=== PATIENT | female | born 1975 | race Caucasian/White ===

== ENCOUNTER 2016-08-10 19:41 | Emergency (ER) | payer BC, OTHER ==
[2016-08-10] MEDS ORDERED: solu-MEDROL 125 MG IV ONE (19:52)
[2016-08-10] MEDS ORDERED: PROVENTIL 2.5 MG/3 ML NEB IH ONE ×2 (19:52→19:59)
[2016-08-10] MEDS ORDERED: solu-MEDROL 125 MG ONE (19:56)
[2016-08-10] MEDS ORDERED: Sodium Chloride 0.9% 1000 ML 1,000 ML ONE (19:56)
--- NOTE | 2016-08-10 19:57 | ERPHSYRPT ---
- History of Present Illness Time Seen by Provider: 08/10/16 19:54 Source: patient Exam Limitations: no limitations Patient Subjective Stated Complaint: PT REPORTS INCREASED SOB BEGINNING YESTERDAY-DENIES PRODUCTIVE COUGH-DENIES FEVER Triage Nursing Assessment: PT WHEEZING UPON ARRIVAL-LUNGS TIGHT WITH WHEEZES THROUGHOUT-LABORED BREATHING NOTED-PT ABLE TO SPEAK IN COMPLETE SENTECES WITH EFFORT Physician History: 41-year-old female with significant past medical history of pulmonary fibrosis came to the emergency room with worsening shortness of breath for 1 day. She took some breathing treatments and oxygen at home but without any help. She denies any fever, chills, but complaining of productive cough. Timing/Duration: today Severity of Dyspnea-Max: moderate Severity of Dyspnea-Current: moderate Possible Cause: frequent episodes Modifying Factors: Improves With: nothing Associated Symptoms: cough, wheezing, No chest pain/discomfort, No fever Allergies/Adverse Reactions: No Known Drug Allergies Allergy (Verified 08/10/16 19:47) Home Medications: Clonazepam 0.5 mg [Klonopin 0.5 MG] 0.5 mg PO BID 08/10/16 [History] Hydrocodone Bit/Acetaminophen [[place] 5-325 Tablet] 1 each PO UD 08/10/16 [ History] Tiotropium [place] Inhaler [Spiriva 18 Mcg/Cap Inhaler] 1 ea IH UD [History] Hx Tetanus, Diphtheria Vaccination/Date Given: Yes (5 yrs) Hx Influenza Vaccination/Date Given: No Hx Pneumococcal Vaccination/Date Given: Yes (5 yrs) Immunizations Up to Date: Yes - Review of Systems Constitutional: No Fever, No Chills Eyes: No Symptoms Ears, Nose, & Throat: No Symptoms Respiratory: Cough, Dyspnea, Dyspnea on Exertion (READ), Wheezing Cardiac: No Chest Pain, No Edema, No Syncope Abdominal/Gastrointestinal: No Abdominal Pain, No Nausea, No Vomiting, No Diarrhea Genitourinary Symptoms: No Dysuria Musculoskeletal: No Back Pain, No Neck Pain Skin: No Rash Neurological: No Dizziness, No Focal Weakness, No Sensory Changes Psychological: No Symptoms Endocrine: No Symptoms All Other Systems: Reviewed and Negative - Past Medical History Pertinent Past Medical History: Yes Respiratory History: Asthma, COPD, Pneumonia Psycho-Social History: Depression Other Medical History: PULMONARY - Past Surgical History Past Surgical History: Yes Musculoskeletal: Orthopedic Surgery Female Surgical History: Hysterectomy - Social History Smoking Status: Former smoker How long have you smoked: 20 Exposure to second hand smoke: Yes Drug Use: none Patient Lives Alone: No - Female History Hx Now: No - Nursing Vital Signs Nursing Vital Signs: Initial Vital Signs Temperature 99.1 F Temperature Source Oral Pulse Rate 103 Respiratory Rate 22 Blood Pressure [] 119/69 Pain Intensity 6 - Physical Exam General Appearance: no apparent distress, alert Eye Exam: PERRL/EOMI Neck Exam: normal inspection, supple Respiratory Exam: respiratory distress, diminished breath sounds, prolonged expirations, rhonchi, wheezing Cardiovascular/Chest Exam: normal heart sounds, regular rate/rhythm Abdominal/Gastrointestinal Exam: soft, No tenderness, No distention, No mass Extremity Exam: non-tender, normal range of motion, normal inspection, no calf tenderness, no pedal edema Neurologic Exam: alert, oriented x 3, cooperative, science analyst II-XII nml as tested, sensation nml, No motor deficits Skin Exam: normal color, warm, No dry SpO2 Interpretation: borderline oxygenation SpO2: 94 Oxygen Delivery: Room Air - Course Nursing assessment & vital signs reviewed: Yes - Radiology Exams Chest X-ray Interpretation: Reviewed by me, Teleradiologist Report Ordered Tests: Active Orders 24 hr Category Date Time Status Oxygen-ED Only NASAL CANNULA 3 lpm Care 08/10/16 19:52 Active CHEST 2 VIEWS (PA AND LAT) Stat Exams 08/10/16 19:52 Taken CBC W DIFF Stat Lab 08/10/16 19:55 Completed CMP Stat Lab 08/10/16 19:55 Completed Respiratory Nebulizer STAT RT 08/10/16 19:54 Completed Respiratory Nebulizer STAT RT 08/10/16 20:41 Completed Medication Summary Generic Name Dose Route Start Last Admin Trade Name Freq PRN Reason Stop Dose Admin Sodium Chloride 1,000 mls @ 50 mls/hr 08/10/16 20:00 08/10/16 20:00 Sodium Chloride 0.9% 1000 Ml IV 09/09/16 19:59 50 mls/hr .Q20H SYED Administration Discontinued Medications Generic Name Dose Route Start Last Admin Trade Name Freq PRN Reason Stop Dose Admin Albuterol Sulfate 2.5 mg 08/10/16 19:52 08/10/16 20:17 Proventil 2.5 Mg/3 Ml Neb IH 08/10/16 19:53 2.5 mg STAT ONE Administration Albuterol Sulfate Confirm 08/10/16 19:59 Proventil 2.5 Mg/3 Ml Neb Administered 08/10/16 20:00 Dose 2.5 mg IH .STK-MED ONE Albuterol/Ipratropium 3 ml 08/10/16 20:41 08/10/16 20:56 Duoneb 0.5-3 Mg/3 Ml Neb IH 08/10/16 20:42 3 ml STAT ONE Administration Albuterol/Ipratropium Confirm 08/10/16 20:55 Duoneb 0.5-3 Mg/3 Ml Neb Administered 08/10/16 20:56 Dose 3 ml IH .STK-MED ONE Budesonide 0.5 mg 08/10/16 20:00 08/10/16 20:17 Pulmicort 0.5 Mg/2 Ml Respules IH 08/10/16 20:01 0.5 mg STAT ONE Administration Budesonide Confirm 08/10/16 19:59 Pulmicort 0.5 Mg/2 Ml Respules Administered 08/10/16 20:00 Dose 0.5 mg IH .STK-MED ONE Methylprednisolone Sodium Succinate 80 mg 08/10/16 19:52 08/10/16 20:00 Solu-Medrol 125 Mg IV 08/10/16 19:53 80 mg STAT ONE Administration Methylprednisolone Sodium Succinate Confirm 08/10/16 19:56 Solu-Medrol 125 Mg Administered 08/10/16 19:57 Dose 125 mg .ROUTE .STK-MED ONE Lab/Rad Data: Laboratory Result Diagrams 08/10/16 19:55 08/10/16 19:55 Laboratory Results 08/10/16 08/10/16 Range/Units 19:55 19:55 WBC 9.6 (4.0-10.5) K/mm3 RBC 4.73 (4.1-5.4) M/mm3 Hgb 14.2 (12.0-16.0) gm/dl Hct 44.4 (35-47) % MCV 93.9 (78-100) fl MCH 30.0 (26-32) pg MCHC 32.0 (32-36) g/dl RDW 14.3 H (11.5-14.0) % Plt Count 316 (150-450) K/mm3 MPV 10.4 H (6-9.5) fl Gran % 59.3 (36.0-66.0) % Lymphocytes % 28.0 (24.0-44.0) % Monocytes % 11.0 (0.0-12.0) % Eosinophils % 1.4 (0.00-5.0) % Basophils % 0.3 (0.0-0.4) % Basophils # 0.03 (0-0.4) Sodium 139 (136-145) mEq/L Potassium 4.4 (3.5-5.1) mEq/L Chloride 103 (98-107) mEq/L Carbon Dioxide 26.3 (21-32) mEq/L Anion Gap 14.4 (5-15) MEQ/L BUN 32 H (9-20) mg/dL Creatinine 0.94 (0.55-1.30) mg/dl Estimated GFR > 60 ML/MIN Glucose 104 (70-110) MG/DL Calcium 9.2 (8.5-10.1) mg/dL Total Bilirubin 0.30 (0.2-1.0) mg/dL AST 21 (15-37) U/L ALT 57 (12-78) U/L Alkaline Phosphatase 102 (46-116) U/L Serum Total Protein 7.7 (6.4-8.2) gm/dL Albumin 3.8 (3.4-5.0) g/dL - Progress Progress: improved, re-examined Air Movement: good Blood Culture(s) Obtained: No Antibiotics given: No Counseled pt/family regarding: lab results, diagnosis, need for follow-up, rad results - Departure Time of Disposition: 21:17 Departure Disposition: Home Clinical Impression: Acute exacerbation of chronic bronchitis Condition: Stable Critical Care Time: Yes Critical Care Time(excluding separately billable procedures): 30-74 minutes Referrals: DOCTOR,NO FAMILY [Primary Care Provider] - Instructions: Shortness of Breath Additional Instructions: Please follow the instructions given to you. Please take your medication as prescribed if given. If symptoms recur or get worse, come back to the emergency room if you cannot reach your primary care physician, or call your primary care physician for an appointment. Again if your symptoms get worse, come back to the emergency room. Thanks for visiting emergency room, and let us take care of you. use your nebulizer treatment every 4 hours for next 24 hours
[2016-08-10] MEDS ORDERED: PULMICORT 0.5 MG/2 ML RESPULES IH ONE ×2 (19:59→20:00)
[2016-08-10] MEDS ORDERED: Sodium Chloride 0.9% 1000 ML 1,000 ML IV SCH (20:00)
[2016-08-10 20:04] LABS: BASOPHIL % 0.3 % (0.0-0.4); Eosinophil % 1.4 % (0.00-5.0); Granulocytes % 59.3 % (36.0-66.0); Mean Cell Volume 93.9 fl (78-100); Mean Platelet Volume 10.4 fl (6-9.5); Platelet Count 316 K/mm3 (150-450); Red Blood Count 4.73 M/mm3 (4.1-5.4); Red Cell Distribution Width 14.3 % (11.5-14.0); White Blood Count 9.6 K/mm3 (4.0-10.5)
[2016-08-10 20:28] LABS: ALBUMIN 3.8 g/dL (3.4-5.0); ALKALINE PHOSPHATASE 102 U/L (46-116); ANION GAP 14.4 MEQ/L (5-15); BLOOD UREA NITROGEN 32 mg/dL (9-20); CHLORIDE 103 mEq/L (98-107); Carbon Dioxide 26.3 mEq/L (21-32); Glucose 104 MG/DL (70-110); Potassium 4.4 mEq/L (3.5-5.1); SGOT/AST 21 U/L (15-37); SGPT/ALT 57 U/L (12-78); SODIUM 139 mEq/L (136-145); Total Protein 7.7 gm/dL (6.4-8.2)
[2016-08-10 20:33] VITALS: BP 119/69
[2016-08-10] MEDS ORDERED: DUONEB 0.5-3 MG/3 ml Neb IH ONE ×2 (20:41→20:55)
[2016-08-10 21:25] VITALS: PULSE 90; O2SAT 97
--- NOTE | 2016-08-11 08:18 | XRAY ---
Indication: Short of breath. Comparison: April 10, 2013. PA/lateral chest remains clear. Heart and mediastinal structures within normal limits. Bony thorax intact. Impression: Stable nonacute chest.
== END 2016-08-10 21:26 | disposition home or self-care (01) ==
LOC: ED 19:41
DX: J42 Unspecified chronic bronchitis (principal); R06.2 Wheezing; J84.10 Pulmonary fibrosis, unspecified; J44.1 Chronic obstructive pulmonary disease with (acute) exacerbation; Z87.01 Personal history of pneumonia (recurrent)
CPT/HCPCS: 36000; 36415; 71020; 80053; 85025; 94640; 96360; 96361; 96374; 99284; J2930; A9270-GY

== ENCOUNTER 2020-11-25 16:49 | Emergency (ER) | payer BC, OTHER ==
[2020-11-25] MEDS ORDERED: DUONEB 0.5-3 MG/3 ml Neb IH ONE ×2 (17:09→17:10)
[2020-11-25] MEDS ORDERED: solu-MEDROL 125 MG, Sterile H2O 10 ml 2 ML IV ONE ×2 (17:12)
[2020-11-25] MEDS ORDERED: Sodium Chloride 0.9% 1000 ML 1,000 ML IV STA (17:12)
[2020-11-25] MEDS ORDERED: PULMICORT 0.5 MG/2 ML RESPULES IH ONE ×2 (17:14→17:16)
--- NOTE | 2020-11-25 17:16 | ERPHSYRPT ---
- History of Present Illness Time Seen by Provider: 11/25/20 17:15 Source: patient Exam Limitations: no limitations Patient Subjective Stated Complaint: PT states "I have pulmonary fibrosis and I have been battling this cough and shortness of breath for the past three weeks." Triage Nursing Assessment: Pt presented alert and oriented X 3, skin pwd pt ambulates with a slow gait, speaking in five to six word sentences pt. PT has audible wheezes. PT coughing intermittantly. Physician History: PT states "I have pulmonary fibrosis and I have been battling this cough and shortness of breath for the past three weeks." Allergies/Adverse Reactions: No Known Drug Allergies Allergy (Verified 08/10/16 19:47) Home Medications: Hydrocodone Bit/Acetaminophen [[place] 5-325 Tablet] 1 each PO UD 08/10/16 [History] Lorazepam 0.5 mg [Ativan 0.5 MG] 0.5 mg PO TID 11/25/20 [History] Hx Tetanus, Diphtheria Vaccination/Date Given: No Hx Influenza Vaccination/Date Given: Yes Hx Pneumococcal Vaccination/Date Given: Yes Immunizations Up to Date: Yes Travel Risk - International Travel Have you traveled outside of the country in past 3 weeks: No - Coronavirus Screening Are you exhibiting any of the following symptoms?: No Close contact with a COVID-19 positive Pt in past 14-21 Days: No - Vaccine Status Have you recieved a Covid-19 vaccination: No - Past Medical History Pertinent Past Medical History: Yes Respiratory History: Asthma, COPD, Pneumonia Psycho-Social History: Depression Other Medical History: PULMONARY - Past Surgical History Past Surgical History: Yes Musculoskeletal: Orthopedic Surgery Female Surgical History: Hysterectomy - Social History Smoking Status: Former smoker How long have you smoked: 20 Exposure to second hand smoke: Yes Drug Use: none Patient Lives Alone: No - Female History Hx Last Menstrual Period: hysterectomy Hx Now: No - Nursing Vital Signs Nursing Vital Signs: Initial Vital Signs Temperature 98.2 F 11/25/20 16:58 Pulse Rate 90 11/25/20 16:58 Respiratory Rate 26 H 11/25/20 16:58 Blood Pressure 155/109 11/25/20 16:58 O2 Sat by Pulse Oximetry 93 L 11/25/20 16:58 Pain Scale Pain Intensity 5 - Physical Exam SpO2 Interpretation: normal SpO2: 93 O2 Delivery: Room Air - Course Nursing assessment & vital signs reviewed: Yes - Radiology Exams Chest X-ray Interpretation: Reviewed by me, Negative Ordered Tests: Active Orders 24 hr Category Date Time Status Instructor Weaving STAT Care 11/25/20 17:13 Active EKG-ER Only STAT Care 11/25/20 17:12 Active Oxygen-ED Only Nasal Cannula 3 lpm Care 11/25/20 17:12 Active CHEST 2 VIEWS (PA AND LAT) Stat Exams 11/25/20 17:12 Ordered CBC W DIFF Stat Lab 11/25/20 17:26 Completed CMP Stat Lab 11/25/20 17:26 Completed D-DIMER QUANTITATIVE Stat Lab 11/25/20 17:26 Completed MAGNESIUM Stat Lab 11/25/20 17:26 Completed NT PRO BNP Stat Lab 11/25/20 17:26 Completed UA W/RFX UR CULTURE Stat Lab 11/25/20 17:26 Completed Respiratory Therapy Assessment DAILY RT 11/25/20 17:25 Active Medication Summary Generic Name Dose Route Start Last Admin Trade Name Freq PRN Reason Stop Dose Admin Sodium Chloride 1,000 mls @ 999 mls/hr 11/25/20 17:12 11/25/20 17:21 Sodium Chloride 0.9% 1000 Ml IV 11/25/20 18:12 999 mls/hr .Q1H1M STA Administration Ceftriaxone Sodium/Dextrose 1 g in 50 mls @ 100 mls/hr 11/25/20 17:53 Rocephin 1 Gm-D5w 50 Ml Bag IV 11/25/20 18:22 STAT STA Discontinued Medications Generic Name Dose Route Start Last Admin Trade Name Freq PRN Reason Stop Dose Admin Albuterol/Ipratropium 3 ml 11/25/20 17:09 11/25/20 17:20 Duoneb 0.5-3 Mg/3 Ml Neb IH 11/25/20 17:10 3 ml STAT ONE Administration Albuterol/Ipratropium Confirm 11/25/20 17:10 Duoneb 0.5-3 Mg/3 Ml Neb Administered 11/25/20 17:11 Dose 3 ml IH .STK-MED ONE Budesonide 0.5 mg 11/25/20 17:14 11/25/20 17:20 Pulmicort 0.5 Mg/2 Ml Respules IH 11/25/20 17:15 0.5 mg NOW ONE Administration Methylprednisolone Sodium 0 mg 11/25/20 17:12 11/25/20 17:21 Succinate 125 mg/ Sterile IV 11/25/20 17:13 125 mg Water 2 ml STAT ONE Administration Sodium Chloride Confirm 11/25/20 17:17 Sodium Chloride 0.9% 1000 Ml Administered 11/25/20 17:18 Dose 1,000 mls @ ud .ROUTE .STK-MED ONE Methylprednisolone Sodium Succinate Confirm 11/25/20 17:17 Solu-Medrol Administered 11/25/20 17:18 Dose 125 mg .ROUTE .STK-MED ONE Sterile Water Confirm 11/25/20 17:17 Sterile H2o 10 Ml Administered 11/25/20 17:18 Dose 10 ml IJ .STK-MED ONE Lab/Rad Data: Laboratory Result Diagrams 11/25/20 17:26 11/25/20 17:26 Laboratory Results 11/25/20 11/25/20 11/25/20 Range/Units 17:26 17:26 17:26 WBC 12.6 H (4.0-10.5) K/mm3 RBC 4.76 (4.1-5.4) M/mm3 Hgb 13.8 (12.0-16.0) gm/dl Hct 43.7 (35-47) % MCV 91.8 (78-100) fl MCH 29.0 (26-32) pg MCHC 31.6 L (32-36) g/dl RDW 15.7 H (11.5-14.0) % Plt Count 405 (150-450) K/mm3 MPV 10.0 (7.5-11.0) fl Gran % 63.6 (36.0-66.0) % Eos # (Auto) 0.09 (0-0.5) Absolute Lymphs (auto) 3.59 (1.0-4.6) Absolute Monos (auto) 0.88 (0.0-1.3) Lymphocytes % 28.4 (24.0-44.0) % Monocytes % 7.0 (0.0-12.0) % Eosinophils % 0.7 (0.00-5.0) % Basophils % 0.3 (0.0-0.4) % Absolute Granulocytes 8.03 H (1.4-6.9) Basophils # 0.04 (0-0.4) D-Dimer 649 H* (215-500) ng/mL Sodium 138 (137-145) mmol/L Potassium 4.2 (3.5-5.1) mmol/L Chloride 104 (98-107) mmol/L Carbon Dioxide 27 (22-30) mmol/L Anion Gap 11.3 (5-15) MEQ/L BUN 19 H (7-17) mg/dL Creatinine 0.61 (0.52-1.04) mg/dL Estimated GFR > 60.0 ML/MIN Glucose 94 (74-106) mg/dL Calcium 9.2 (8.4-10.2) mg/dL Magnesium 2.0 (1.6-2.3) mg/dL Total Bilirubin 0.40 (0.2-1.3) mg/dL AST 30 (14-36) U/L ALT 32 (0-35) U/L Alkaline Phosphatase 99 (38-126) U/L NT-Pro-B Natriuret Pep 24.1 (0-450) pg/mL Serum Total Protein 7.0 (6.3-8.2) g/dL Albumin 4.2 (3.5-5.0) g/dL Urine Color (YELLOW) Urine Appearance (CLEAR) Urine pH (5-6) Ur Specific [place] (1.005-1.025) Urine Protein (Negative) Urine Ketones (NEGATIVE) Urine Blood (0-5) Josh/ul Urine Nitrite (NEGATIVE) Urine Bilirubin (NEGATIVE) Urine Urobilinogen (0-1) mg/dL Ur Leukocyte Esterase (NEGATIVE) Urine WBC (Auto) (0-5) /HPF Urine RBC (Auto) (0-2) /HPF U Epithel Cells (Auto) (FEW) /HPF Urine Bacteria (Auto) (NEGATIVE) /HPF Amorphous Crystals (NEGATIVE) /HPF Urine Mucus (Auto) (NEGATIVE) /HPF Urine Culture Reflexed (NO) Urine Glucose (NEGATIVE) mg/dL 11/25/20 Range/Units 17:26 WBC (4.0-10.5) K/mm3 RBC (4.1-5.4) M/mm3 Hgb (12.0-16.0) gm/dl Hct (35-47) % MCV (78-100) fl MCH (26-32) pg MCHC (32-36) g/dl RDW (11.5-14.0) % Plt Count (150-450) K/mm3 MPV (7.5-11.0) fl Gran % (36.0-66.0) % Eos # (Auto) (0-0.5) Absolute Lymphs (auto) (1.0-4.6) Absolute Monos (auto) (0.0-1.3) Lymphocytes % (24.0-44.0) % Monocytes % (0.0-12.0) % Eosinophils % (0.00-5.0) % Basophils % (0.0-0.4) % Absolute Granulocytes (1.4-6.9) Basophils # (0-0.4) D-Dimer (215-500) ng/mL Sodium (137-145) mmol/L Potassium (3.5-5.1) mmol/L Chloride (98-107) mmol/L Carbon Dioxide (22-30) mmol/L Anion Gap (5-15) MEQ/L BUN (7-17) mg/dL Creatinine (0.52-1.04) mg/dL Estimated GFR ML/MIN Glucose (74-106) mg/dL Calcium (8.4-10.2) mg/dL Magnesium (1.6-2.3) mg/dL Total Bilirubin (0.2-1.3) mg/dL AST (14-36) U/L ALT (0-35) U/L Alkaline Phosphatase (38-126) U/L NT-Pro-B Natriuret Pep (0-450) pg/mL Serum Total Protein (6.3-8.2) g/dL Albumin (3.5-5.0) g/dL Urine Color YELLOW (YELLOW) Urine Appearance SLIGHTLY CLOUDY (CLEAR) Urine pH 6.0 (5-6) Ur Specific [place] 1.019 (1.005-1.025) Urine Protein NEGATIVE (Negative) Urine Ketones NEGATIVE (NEGATIVE) Urine Blood NEGATIVE (0-5) Josh/ul Urine Nitrite NEGATIVE (NEGATIVE) Urine Bilirubin NEGATIVE (NEGATIVE) Urine Urobilinogen NEGATIVE (0-1) mg/dL Ur Leukocyte Esterase TRACE (NEGATIVE) Urine WBC (Auto) 0-2 (0-5) /HPF Urine RBC (Auto) 0-2 (0-2) /HPF U Epithel Cells (Auto) RARE (FEW) /HPF Urine Bacteria (Auto) NONE SEEN (NEGATIVE) /HPF Amorphous Crystals FEW (NEGATIVE) /HPF Urine Mucus (Auto) SLIGHT (NEGATIVE) /HPF Urine Culture Reflexed NO (NO) Urine Glucose NEGATIVE (NEGATIVE) mg/dL - Progress Progress: improved Air Movement: good Blood Culture(s) Obtained: No Antibiotics given: Yes Counseled pt/family regarding: lab results, diagnosis, need for follow-up, rad results - Departure Departure Disposition: Home Clinical Impression: Acute exacerbation of chronic bronchitis, Pulmonary fibrosis, unspecified Condition: Stable Critical Care Time: Yes Critical Care Time(excluding separately billable procedures): Critical 30-74 mins Referrals: MAYRA JEFFERS [Primary Care Provider] - Follow Up with PCP/3 days Instructions: Shortness of Breath (Dyspnea) (DC), Exacerbation of COPD (DC) Additional Instructions: Discharge/Care Plan DANIELA MIRELES was seen on 11/25/20 in the Emergency Room. The patient was counseled regarding Diagnosis,Lab results, Imaging studies, need for follow up and when to return to the Emergency Room. Prescriptions given: Discharge Note I have spoken with the patient and/or caregivers. I have explained the patient's condition, diagnosis and treatment plan based on the information available to me at this time. I have answered the patient's and/or caregiver's questions and addressed any concerns. The patient and/or caregivers have as good understanding of the patient's diagnosis, condition and treatment plan as can be expected at this point. The vital signs have been stable. The patient's condition is stable and appropriate for discharge from the emergency department. The patient will pursue further outpatient evaluation with the primary care physician or other designated or consulting physician as outlined in the discharge instructions. The patient and/or caregivers are agreeable to this plan of care and follow-up instructions have been explained in detail. The patient and/or caregivers have received these instruction. The patient/and or caregivers are aware that any significant change in condition or worsening of symptoms should prompt an immediate return to this or the closest emergency department or call 911. DANIELA MIRELES was seen on 11/25/20 n the Emergency Room. At that time you were treated for an emergent condition, during your visit Laboratory, Radiology and/or other procedures may have been ordered. It is very important that you follow-up with your Primary Care Physician MAYRA JEFFERS within the next 24-48 hours to review your Emergency Room visit and the final results of testing that was ordered. Some test results such as Urine Cultures, Blood Cultures, and other cultures if ordered will not be finalized for 24-48 hours. If you do not have a Primary Care Provider please call the medical records department at [phone] to obtain a copy of your results or you may sign into our patient portal to obtain these results by visiting us @ [email or web address] and completing the following steps: 1. Click on the Patient Portal link 2. Click the Patient Self Enrollment Link to complete the enrollment form and entering your 3. Once the enrollment form is completed you will receive an email with a temporary ID and password at the email address you provided. 4. Next choose a user name and password. Your user name must be at least 4 characters long and your password must be at least 4 characters long. 5. Choose a security question from the list and provide your answer to the quest ion. If you already have signed into the Health Portal you may access your Health Care Information 30/09 by the following steps: 1. Login to our website @ [email or web address] 2. Enter your original user name and password. FAQS The [facility] Health Portal is an online tool that contains your Lab Results, Radiology Reports, Visit History, Discharge Instructions and Health Summary Lab and Radiology Results will not be available for 72 hours on the portal. The Portal is a secure site, passwords are encryted and URLs are re-written so they cannot be copied and pasted. You and authorized family members are the only ones who can access your Portal. Also there is a timeout feature that protects your information if you leave the Portal page open. If you have technical difficulty please use the Contact Us link on the page this will allow you to submit any questions you have regarding the Portal or you may contact the Medical Record Department at [phone]. Prescriptions: Cephalexin Mh 500 mg [Keflex 500 mg] 500 mg PO Q6H #40 cap Methylprednisolone Packet [Medrol Dosepack] 4 mg PO UD #30 packet
[2020-11-25] MEDS ORDERED: Sodium Chloride 0.9% 1000 ML 1,000 ML ONE (17:17)
[2020-11-25] MEDS ORDERED: Sterile H2O 10 ml IJ ONE (17:17)
[2020-11-25] MEDS ORDERED: solu-MEDROL ONE (17:17)
[2020-11-25 17:30] LABS: Absolute Neutrophil Ct (ANC) 8.03 (1.4-6.9); BASOPHIL % 0.3 % (0.0-0.4); Basophil (Absolute #) 0.04 (0-0.4); Eosinophil % 0.7 % (0.00-5.0); Eosinophil (Absolute #) 0.09 (0-0.5); Hematocrit 43.7 % (35-47); Hemoglobin 13.8 gm/dl (12.0-16.0); Lymphocyte (Absolute #) 3.59 (1.0-4.6); Lymphocytes % 28.4 % (24.0-44.0); Mean Cell Volume 91.8 fl (78-100); Mean Corpuscular Hgb Concent. 31.6 g/dl (32-36); Monocyte (Absolute #) 0.88 (0.0-1.3); Neutrophil % 63.6 % (36.0-66.0); Platelet Count 405 K/mm3 (150-450); Red Blood Count 4.76 M/mm3 (4.1-5.4); Red Cell Distribution Width 15.7 % (11.5-14.0); White Blood Count 12.6 K/mm3 (4.0-10.5)
[2020-11-25 17:51] LABS: ALBUMIN 4.2 g/dL (3.5-5.0); ALKALINE PHOSPHATASE 99 U/L (38-126); ANION GAP 11.3 MEQ/L (5-15); BLOOD UREA NITROGEN 19 mg/dL (7-17); CHLORIDE 104 mmol/L (98-107); Calcium 9.2 mg/dL (8.4-10.2); Carbon Dioxide 27 mmol/L (22-30); Creatinine 1 0.61 mg/dL (0.52-1.04); EST GLOMERULAR FILTRATION RATE > 60.0 ML/MIN; Glucose 94 mg/dL (74-106); NT PRO BNP 24.1 pg/mL (0-450); Potassium 4.2 mmol/L (3.5-5.1); SGOT/AST 30 U/L (14-36); SGPT/ALT 32 U/L (0-35); SODIUM 138 mmol/L (137-145)
[2020-11-25 17:53] LABS: Amourphous Crystal FEW /HPF (NEGATIVE); Appearance SLIGHTLY CLOUDY (CLEAR); Bacteria NONE SEEN /HPF (NEGATIVE); Bilirubin NEGATIVE (NEGATIVE); Blood NEGATIVE Ery/ul (0-5); Epithelial Cells RARE /HPF (FEW); Glucose NEGATIVE (NEGATIVE); Ketones NEGATIVE (NEGATIVE); Leukocyte Esterase TRACE (NEGATIVE); Mucus SLIGHT /HPF (NEGATIVE); Nitrite NEGATIVE (NEGATIVE); Protein,Urine Dip NEGATIVE (Negative); RBC 0-2 /HPF (0-2); Specific Gravity 1.019 (1.005-1.025); Urobilinogen NEGATIVE mg/dL (0-1); WBC 0-2 /HPF (0-5)
[2020-11-25] MEDS: ROCEPHIN 1 Gm-D5w 50 ml Bag** 1 G/50 ML IVPB IV STA ×2 (18:11→18:18)
[2020-11-25] MEDS ORDERED: Rocephin 1000 MG INJ ONE (18:12)
[2020-11-25] MEDS ORDERED: Rocephin 1000 MG INJ IM ONE (18:14)
[2020-11-25 18:21] VITALS: BP 122/91; PULSE 101; O2SAT 94
--- NOTE | 2020-11-25 22:12 | XRAY ---
Indication: General ill feeling one month. Comparison: August 10, 2016. PA/lateral chest again demonstrates lingula subsegmental atelectasis/scarring. Remaining heart and lungs unremarkable. Bony thorax intact. No new/acute findings.
[2020-11-26] MEDS ORDERED: Flomax 0.4 MG PO SCH (10:00)
== END 2020-11-25 18:31 | disposition home or self-care (01) ==
LOC: ED 16:49
DX: J42 Unspecified chronic bronchitis (principal); J84.10 Pulmonary fibrosis, unspecified; R05 Cough; R06.02 Shortness of breath; Z79.899 Other long term (current) drug therapy
CPT/HCPCS: 36000; 36415; 71046; 80053; 81001; 83735; 83880; 85025; 85379; 93005; 93041; 94640; 96360; 96372; 96374; 99284; 99291; J0696; J2930; A9270-GY